=== PATIENT | male | born 1980 | race Two or more races ===

== ENCOUNTER 2023-12-02 11:33 | Outpatient (AMB) | payer OTHER, SELFPAY ==
--- NOTE | 2023-12-02 11:38 | A.OFFPC_ITS ---
Vital Signs 12/02/23 11:41 Height 5 ft 10 in Weight 238 lb BMI 34.1 BP 122/80 Blood Pressure Location Lt brachial Position Sitting Pulse 91 Pulse Source Pulse Oximeter Pulse Oximetry (%) 98 Oxygen Delivery Method Room Air Intake Visit Reasons: Lower Back pain/numbness in legs Intake Note: pt is here for new patient, [facility] care. 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 Patient states he has not seen a primary care physician and a decade. Will draw labs today including PSA. Patient has chief complaint of lower back pain radiates down his left leg. 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 Uses ibuprofen and Tylenol with minimal relief. Patient straight leg test positive in office. Has point tenderness to bilateral SI joints. Patient denies saddle numbness or difficulty going the bathroom. Will order lumbar x-ray, give prednisone, meloxicam, and refer to PT. Patient does not know immunization status. Patient has been instructed to get TD booster when he picks up medications local pharmacy. [facility] Surgical History No pertinent past surgical history Family History Father No problems noted. Mother Asthma Social History Housing: House Alcohol intake: current Alcohol intake frequency: a few times a week Alcohol type: beer Patient Tobacco Use Status: Never used Tobacco e-Cigarette/Vaping Use: Never Used Substance Use Type: Crack/Cocaine and Marijuana service: No Current occupational status: unemployed Cognitive needs: No Hearing needs: No Vision needs: No Questionnaire PHQ-9 Over the last 2 weeks, how often have you been bothered by any of the following problems? 1. Little interest or pleasure in doing things: nearly every day 2. Feeling down, depressed, or hopeless: more than half the days 3. Trouble falling or staying asleep, or sleeping too much: nearly every day 4. Feeling tired or having little energy: more than half the days 5. Poor appetite or overeating: nearly every day 6. Feeling bad about yourself - or that you are a failure or have let yourself or your family down: more than half the days 7. Trouble concentrating on things, such as reading the newspaper or watching television: more than half the days 8. Moving or speaking so slowly that other people could have noticed. Or the opposite - being so fidgety or restless that you have been moving around a lot more than usual: not at all 9. Thoughts that you would be better off or of hurting yourself in some way: not at all Total score: 17 Depression Screening Interpretation: Positive Depression Screening Done: Yes 74213 - PHQ-9 Billing: Yes Source: Developed by Drs. Sergio Altamirano, Rosalia Lema, Frank Rodriguez and colleagues, with an educational vishnu from [employer]. Thrive Questionnaire Date Thrive assessed: 12/02/23 I am a: Patient What is your living situation today?: I have a steady place to live Within the past 12 months, did the food you bought not last and you didn't have the money to get more?: Never true Within the past 12 months, did you worry whether your food would run out before you got money to buy more?: Never true Do you have trouble paying for medicines?: No Do you have trouble getting transportation to medical appointments?: No Do you have trouble paying your heating and electricity bill?: No Do you have trouble taking care of your child, family member or friend?: No Do you have trouble with day-to-day activities such as bathing, preparing meals, shopping, managing finances, etc.?: No Are you currently unemployed and looking for a job?: No Are you interested in more education?: No Please select the resources that you would like help with: None Currently or been in a relationship where the following occur: no concerns reported THRIVE Score: 0 AUDIT C Alcohol Use Questionnaire (AUDIT-C) 1. How often do you have a drink containing alcohol?: 2-3 times a week 2. How many drinks containing alcohol do you have on a typical day when you are drinking?: 5 or 6 3. How often do you have six or more drinks on one occasion?: Weekly Total Score: 8 Score Reviewed/Action Taken: Yes HALEIGH-7 AMB Questionnaire HALEIGH-7 Date HALEIGH - 7 assessed: 12/02/23 Feeling nervous, anxious, or on edge: 1 = Several days Not being able to stop or control worryin = More than half the days Worrying too much about different things: 2 = More than half the days Trouble relaxin = More than half the days Being so restless that it is hard to sit still: 0 = Not at all Becoming easily annoyed or irritable: 2 = More than half the days Feeling afraid as if something awful might happen: 2 = More than half the days Total HALEIGH-7 score (0-4 normal; 5-9 mild; 10-14 moderate; 15-21 severe): 11 Source: Developed by Drs. Sergio Altamirano, Rosalia Lema, Frank Rodriguez and colleagues, with an educational vishnu from [employer]. HALEIGH-7 Assessment Billing HALEIGH-7 Assessment Tool: HALEIGH-7 Assessment 44673 Review of Systems Const Details: Constitutional : No Weight loss, No Fever, No Chills, No Fatigue, No Malaise ENT/Mouth : No sore throat, No Rhinorrhea Eyes: No Eye Pain, No Swelling, No Redness Cardiovascular : No Chest Pain, No SOB, No Dyspnea on Exertion, No Orthopnea, No Edema, Admits Palpitations Respiratory : No Cough, No Sputum, No Wheezing Gastrointestinal : No Nausea, No Vomiting, No Diarrhea, No Constipation, No abdominal Pain, No Hematochezia, No Melena Genitourinary : No Dysuria, No Urinary Frequency, No Hematuria, Musculoskeletal : Admits lower back pain. Skin : No Skin Lesions, No rash. Admits bump on back of neck. Admits itchy scaling feet. Neuro : No Weakness, No Numbness, No Dizziness, No Headache Psych : Admits some Anxiety/Panic, No Depression. Denies SI/HI. Heme/Lymph: No Bruising, No Bleeding,No Lymphadenopathy Endocrine : No Polyuria, No Polydipsia All other systems reviewed and are negative Physical exam (Primary Care) Vital Signs: Last Vital Signs Pulse 91 12/02/23 11:41 BP 122/80 12/02/23 11:41 Pulse Ox 98 12/02/23 11:41 Oxygen Delivery Method Room Air 12/02/23 11:41 Care Plan Goal for BP management: Vital signs reviewed stable. BMI result Body Mass Index 34.1 Tobacco/Smoking Status: Tobacco use Status Tobacco use date assessed 12/02/23 12/02/23 11:49 Patient Tobacco Use Status Never used Tobacco 12/02/23 11:49 e-Cigarette/Vaping Use Never Used 12/02/23 11:49 Depression Screening Interpretation: Positive Thrive Assessment: Date of Thrive Assessment Date Thrive assessed 12/02/23 12/02/23 11:49 Currently or been in a relationship where the following occur: no concerns reported Const Other: Appearance: Alert.? Oriented X3.? No acute distress.? Head: Normocephalic, atraumatic, no step-offs or deformities Eyes: Pupils equal, round and reactive to light.? ENT: Pharynx normal.? Neck: Normal inspection.? Neck supple.? CVS: Normal heart rate and rhythm.? Pulses normal.? Respiratory: No respiratory distress.? Breath sounds normal.? Skin: Dryness and scaling on bilateral feet. Small movable, nontender bump on back of neck, left side. Extremities: No lower extremity edema.? No calf ttp. 5/5 strength to bilateral upper and lower extremities Back: No midline tenderness, no C-spine tenderness, full range of motion, no CVA tenderness bilaterally. + SI joint tenderness bilaterally. +straight leg test left leg. Neuro: Oriented X 3.? No motor deficit.? No sensory deficit. CN 2-12 intact Office Procedures EKG 22137-[id number], Complete Assessment and Plan Assessment & Plan (1) Lower back pain: Comment: Will obtain x-ray, will give meloxicam, cyclobenzaprine, prednisone. Will give referral to PT. Code(s): M54.50 - Low back pain, unspecified Qualifiers: Back pain laterality: bilateral Chronicity: unspecified Sciatica laterality: sciatica of left side Sciatica presence: with sciatica Qualified Code(s): M54.42 - Lumbago with sciatica, left side (2) Lump on neck: Comment: Will order ultrasound Code(s): R22.1 - Localized swelling, mass and lump, neck (3) Screening for diabetes mellitus: Comment: Will draw A1c Code(s): Z13.1 - Encounter for screening for diabetes mellitus (4) Palpitations: Comment: In office EKG obtained. Normal sinus rhythm. Code(s): R00.2 - Palpitations Plan: Take your medications as prescribed. If you were prescribed antibiotics today, it is important that you take your medication to their entirety, do not skip any doses, do not finish them early. Follow-up with your primary care provider this week. Return to the emergency department with new or worsening symptoms. Such as fevers, chills, chest pain, shortness of breath, nausea, vomiting, dizziness, headache, vision changes, lethargy In case of emergency call 911 Plan Follow-up in 1 month physical exam Orders: Orders XR lumbar spine 2-3V Today M54.50 - Low back pain, unspecified AMB EKG-In Office Today Z13.6 - Encounter for screening for cardiovascular disorders Complete Blood Count Auto Diff Today Z13.0 - Encounter for screening for diseases of the blood and blood-forming organs and certain disorders involving the immune mechanism Lipid Panel Today Z13.220 - Encounter for screening for lipoid disorders Vitamin B6 Today Z13.21 - Encounter for screening for nutritional disorder Vitamin B12 Today Z13.21 - Encounter for screening for nutritional disorder UA CC w/rflx Micro + Cult Today Z13.89 - Encounter for screening for other disorder TSH reflex Free T4 Today Z13.29 - Encounter for screening for other suspected endocrine disorder Comprehensive Met. Panel Today Z91.89 - Other specified personal risk factors, not elsewhere classified Vitamin D 25-OH (D2 and D3) Today Z13.21 - Encounter for screening for nutritio nal disorder PSA,Total (Free>4and<10) Today Z12.5 - Encounter for screening for malignant neoplasm of prostate US soft tiss head and/or neck Today R22.1 - Localized swelling, mass and lump, neck Hemoglobin A1c Today Z13.1 - Encounter for screening for diabetes mellitus Medications: New ketoconazole 2% 1 appl topical DAILY 15 grams 0RF meloxicam Do not combine with other NSAIDS 15 mg PO DAILY PRN 30 tabs 0RF pain prednisone 40 mg (2 x 20 mg) PO DAILY 10 tabs 0RF cyclobenzaprine 5 mg PO BEDTIME PRN 14 tabs 0RF muscle spasm Coding Level of Care Code New Pt Level 4 (81190) Diagnoses Bilateral low back pain with left-sided sciatica, unspecified chronicity M54.42 Back pain laterality: bilateral Chronicity: unspecified Sciatica laterality: sciatica of left side Sciatica presence: with sciatica Lump on neck R22.1 Screening for diabetes mellitus Z13.1 Palpitations R00.2 CPT Codes EKG - CPT: 58169-[id number], Complete ([id number]) Additional Codes HALEIGH-7 Assessment Billing - HALEIGH-7 Assessment Tool: HALEIGH-7 Assessment 53282 ([id number]) Time Spent (min) 35
[2023-12-02 11:41] VITALS: BP 122/80; PULSE 91; O2SAT 98; BMI 34.1
== END 2023-12-02 13:04 | disposition home or self-care (01) ==
PROVIDERS: Visit Provider Nurse Practitioner Primary Care
DX: M54.42 Lumbago with sciatica, left side (principal); R22.1 Localized swelling, mass and lump, neck; Z13.1 Encounter for screening for diabetes mellitus; R00.2 Palpitations
CPT/HCPCS: 93000; 99204

== ENCOUNTER 2023-12-02 12:29 | Outpatient (REF) | payer OTHER, SELFPAY ==
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
[2023-12-02 16:06] LABS: Appearance Urine Turbid; Color Urine Dark Yellow; Glucose Urine UA Negative (Negative); Leukocyte Esterase Urine Trace (Negative); Nitrite Urine Negative (Negative); PH 5.5 (5.0-9.0); Specific Gravity - Urine >= 1.030 (1.005-1.025); UMIC TRIGGER UACC YES; Urine Blood Negative (Negative); Urine Ketones Trace mg/dL (Negative); Urine Protein 30 (1+) mg/dL (Neg-Trace)
[2023-12-02 16:21] LABS: Bacteria Urine None Seen (None Seen); RBC Urine 0-2 /HPF (0-2); WBC Urine 0-5 /HPF (0-5)
[2023-12-02 16:45] LABS: MANUAL DIFF FLAG NO
[2023-12-02 17:09] LABS: Estimated Average Glucose 97 mg/dL
[2023-12-02 17:13] LABS: Alanine Aminotransferase 30 U/L (0-40); Albumin Level 4.5 g/dL (3.5-5.0); Alkaline Phosphatase 71 U/L (39-117); Anion Gap 13 (12-20); Aspartate Amino Transferase 24 U/L (5-37); Bilirubin Total 0.6 mg/dL (0.0-1.0); Blood Urea Nitrogen 10 mg/dL (9-16); Calcium 9.9 mg/dL (8.4-10.2); Carbon Dioxide 28 mmol/L (22-29); Chloride 102 mmol/L (96-108); Cholesterol 206 mg/dL (<200); Estimated Glomerular Filt Rate > 60; Glucose Random 85 mg/dL (60-115); HDL Cholesterol 52 mg/dL (>40); LDL Cholesterol Calculated 115 mg/dL (<100); Potassium 3.9 mmol/L (3.3-5.1); Sodium 139 mmol/L (135-145); Total Protein 8.2 g/dL (6.5-8.0); Triglycerides 196 mg/dL (<150)
[2023-12-02 17:24] LABS: Basophils Absolute Auto 0.1 X10*3/uL (0.0-0.2); Basophils Percent Auto 0.6 % (0-2); Eosinophils Absolute Auto 0.1 X10*3/uL (0.0-0.4); Eosinophils Percent Auto 0.8 % (0-4); Hematocrit 47.5 % (42.0-52.0); Hemoglobin 15.6 g/dl (14.0-18.0); Imm Gran Abs Auto 0.07 X10*3/uL (0.00-0.03); Imm Gran Pct Auto 0.5 % (0.0-0.4); Lymphocytes Absolute Auto 3.1 X10*3/uL (1.2-4.9); Lymphocytes Percent Auto 23.5 % (20-40); Mean Corpuscular HGB Conc 32.8 g/dl (31.0-36.0); Mean Corpuscular Hemoglobin 33.3 pg (27.0-33.0); Mean Corpuscular Volume 101.5 fL (80.0-98.0); Mean Platelet Volume 10.7 fL (9.4-12.4); Monocytes Absolute Auto 0.9 X10*3/uL (0.1-1.2); Neutrophils Absolute Auto 8.8 x10*3/uL (2.0-8.3); Neutrophils Percent Auto 67.6 % (45-73); Platelet Count 335 X10*3/uL (160-400); Red Blood Count 4.68 X10*6/uL (4.60-5.80); Red Cell Distribution Width 11.8 % (11.0-16.0)
[2023-12-02 17:29] LABS: TSH reflex Free T4 1.53 uIU/mL (0.32-4.0)
[2023-12-02 17:33] LABS: Vitamin B12 630 pg/mL (200-900)
[2023-12-06 13:34] LABS: Vitamin D 25-OH, D2 <4 ng/mL; Vitamin D 25-OH, D3 16 ng/mL; Vitamin D 25-OH, Total 16 ng/mL (30-100)
[2023-12-07 11:43] LABS: Vitamin B6 7.8 ng/mL (2.1-21.7)
== END 2023-12-02 12:30 | disposition home or self-care (01) ==
LOC: HO.HMGCX 12:29
PROVIDERS: PCP Nurse Practitioner Primary Care; Visit Provider Nurse Practitioner Primary Care
DX: Z13.220 Encounter for screening for lipoid disorders (principal); Z13.21 Encounter for screening for nutritional disorder; Z13.29 Encounter for screening for other suspected endocrine disorder; Z13.0 Encounter for screening for diseases of the blood and blood-forming organs and certain disorders involving the immune mechanism; Z12.5 Encounter for screening for malignant neoplasm of prostate; M54.50 Low back pain, unspecified; Z91.89 Other specified personal risk factors, not elsewhere classified
CPT/HCPCS: 36415; 72100; 80053; 80061; 81001; 82306; 82607; 83036; 84153; 84207; 84443; 85025

== ENCOUNTER → 2023-12-05 10:34 | Outpatient (BNVA) | payer SELFPAY | PROVIDERS: PCP Nurse Practitioner Primary Care; Visit Provider Physician Assistant Medical | DX: Z02.79 Encounter for issue of other medical certificate (principal) ==

== ENCOUNTER 2023-12-07 10:26 | Outpatient (REF) | payer OTHER, SELFPAY ==
--- NOTE | ~2023-12-07 | US_ITS ---
EXAMINATION: US SOFT TISSUE HEAD/NECK CLINICAL INFORMATION: Localized swelling, mass and lump, left neck. COMPARISON: None available. TECHNIQUE: Linear transducer goode-scale and color Doppler examination with attention to the region of concern in the left neck as indicated by the patient. FINDINGS: Corresponding with the palpable finding in the lateral left neck, a 1.3 x 1.5 x 0.5 cm hypoechoic, circumscribed subdermal collection is seen. There is no associated color Doppler flow. There is no definite sinus tract noted. There is increased through sound transmission. US/US soft tiss head and/or neck IMPRESSION: Corresponding with the palpable finding in the lateral, lower left cervical region, a 1.5 cm subdermal low echotexture collection is noted. The ultrasound appearance favors an epidermal inclusion cyst. A lipoma would be a further, less likely differential possibility. Recommend management on a clinical basis.
== END 2023-12-07 10:27 | disposition home or self-care (01) ==
LOC: HO.HMGCX 10:26
PROVIDERS: PCP Nurse Practitioner Primary Care; Visit Provider Nurse Practitioner Primary Care
DX: R22.1 Localized swelling, mass and lump, neck (principal)
CPT/HCPCS: 76536

== ENCOUNTER 2024-01-02 08:46 | Outpatient (AMB) | payer OTHER, SELFPAY ==
[2024-01-02 08:48] VITALS: BP 122/78; PULSE 74; O2SAT 98; BMI 34.9
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
== END 2024-01-02 10:43 | disposition home or self-care (01) ==
PROVIDERS: Visit Provider Nurse Practitioner Primary Care
DX: R29.898 Other symptoms and signs involving the musculoskeletal system (principal); L72.0 Epidermal cyst; M54.42 Lumbago with sciatica, left side; F41.9 Anxiety disorder, unspecified; F32.A Depression, unspecified; M53.3 Sacrococcygeal disorders, not elsewhere classified
CPT/HCPCS: 99214

== ENCOUNTER 2024-01-12 09:33 | Outpatient (REF) | payer OTHER, SELFPAY ==
--- NOTE | ~2024-01-12 | XR_ITS ---
EXAMINATION: XR SACROILIAC JOINTS CLINICAL INFORMATION: Sacral coccygeal disorder not otherwise specified. COMPARISON: Lumbar spine 12/02/2023. TECHNIQUE: 3 views of the sacroiliac joints FINDINGS: Mild degenerative changes with sclerosis in the bilateral sacroiliac joints. Imaged portions of bilateral hip joints appear symmetric with mild acetabular hypertrophic change/sclerosis, left greater than right. 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 Imaged portions of bilateral hip joints appear symmetric with mild acetabular hypertrophic change/sclerosis, left greater than right.
--- NOTE | ~2024-01-12 | US_ITS ---
EXAMINATION: US DIANE complete CLINICAL INFORMATION: Other symptoms and signs involving the musculoskeletal system COMPARISON: None available. TECHNIQUE: The ankle/brachial indices of the distal posterior tibial and the dorsalis pedis arteries were obtained of the lower extremity arterial system bilaterally; along with pressures and pulse volume recordings at the ankle level. The study was performed at rest. FINDINGS: 1. ANKLE-BRACHIAL INDICES: RIGHT: 1.06 LEFT: 1.08 2. ANKLE PVR WAVEFORMS: RIGHT: Normal LEFT: Normal US/US DIANE complete IMPRESSION: Normal resting peripheral arterial testing without evidence of hemodynamically significant stenosis.
--- NOTE | ~2024-01-12 | US_ITS ---
EXAMINATION: US RETROPERITONEAL LIMITED (RENAL ONLY) CLINICAL INFORMATION: Calculus of kidney. COMPARISON: X-ray lumbar spine 12/02/2023. TECHNIQUE: Real-time imaging of the kidneys. FINDINGS: RIGHT KIDNEY: 11.5 x 6.0 x 6.8 cm (SAG x AP x TRV). The kidney is normal in size, contour, and echogenicity. Renal cortical thickness is normal. No calculi or focal parenchymal lesions. No hydronephrosis. LEFT KIDNEY: 11.5 x 5.6 x 5.5 cm (SAG x AP x TRV). The kidney is normal in size, contour, and echogenicity. Renal cortical thickness is normal. No focal parenchymal lesions or hydronephrosis. 0.4 x 0.3 x 0.4 cm nonobstructing calculus is seen in the mid kidney. US/US renal BI IMPRESSION: 1. Normal appearance of the right kidney. 2. 0.4 cm nonobstructing calculus in the mid left kidney.
== END 2024-01-12 09:34 | disposition home or self-care (01) ==
LOC: HO.US 09:33
PROVIDERS: PCP Nurse Practitioner Primary Care; Visit Provider Nurse Practitioner Primary Care
DX: N20.0 Calculus of kidney (principal); R29.898 Other symptoms and signs involving the musculoskeletal system; M53.3 Sacrococcygeal disorders, not elsewhere classified
CPT/HCPCS: 72200; 76775; 93923

== ENCOUNTER 2024-05-14 16:37 | Emergency (ER) | payer OTHER, SELFPAY ==
--- NOTE | ~2024-05-14 | XR_ITS ---
EXAMINATION: XR FOOT, LEFT CLINICAL INFORMATION: Pain and swelling COMPARISON: None available. TECHNIQUE: AP, lateral, and oblique views of the left foot. FINDINGS: No evidence of acute fracture or dislocation. Alignment is anatomic. Joint spaces are maintained. No bony erosive changes are seen. Dorsal and plantar soft tissue swelling and subcutaneous edema. No air is seen in the soft tissues. No unexpected radiopaque foreign bodies. XR/XR foot LT min 3V IMPRESSION: No radiographic evidence of acute osseous abnormality. Soft tissue swelling. Electronically signed by: Berhane Lozano MD 05/14/2024 07:47 PM EDT
[2024-05-14 17:20] VITALS: BP 144/101; PULSE 85; RESP 16; TEMP 37.3; O2SAT 96; BMI 36.9
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
[2024-05-14 18:00] LABS: MANUAL DIFF FLAG NO
[2024-05-14 18:15] LABS: Basophils Percent Auto 0.3 % (0-2); Eosinophils Absolute Auto 0.1 X10*3/uL (0.0-0.4); Eosinophils Percent Auto 0.4 % (0-4); Hematocrit 41.5 % (42.0-52.0); Imm Gran Abs Auto 0.07 X10*3/uL (0.00-0.03); Imm Gran Pct Auto 0.5 % (0.0-0.4); Lymphocytes Absolute Auto 2.7 X10*3/uL (1.2-4.9); Lymphocytes Percent Auto 19.8 % (20-40); Mean Corpuscular HGB Conc 33.7 g/dl (31.0-36.0); Mean Corpuscular Hemoglobin 32.9 pg (27.0-33.0); Mean Corpuscular Volume 97.6 fL (80.0-98.0); Monocytes Absolute Auto 0.9 X10*3/uL (0.1-1.2); Monocytes Percent Auto 6.3 % (2-11); Neutrophils Percent Auto 72.7 % (45-73); Platelet Count 338 X10*3/uL (160-400); Red Blood Count 4.25 X10*6/uL (4.60-5.80); Red Cell Distribution Width 11.8 % (11.0-16.0); White Blood Count 13.8 X10*3/uL (4.8-10.8)
[2024-05-14 18:16] LABS: Alanine Aminotransferase 28 U/L (0-40); Albumin Level 4.2 g/dL (3.5-5.0); Alkaline Phosphatase 76 U/L (39-117); Anion Gap 14 (12-20); Aspartate Amino Transferase 16 U/L (5-37); Bilirubin Total 0.4 mg/dL (0.0-1.0); Blood Urea Nitrogen 6 mg/dL (9-16); C Reactive Protein 1.18 mg/dL (< or = 0.50); Calcium 9.1 mg/dL (8.4-10.2); Carbon Dioxide 22 mmol/L (22-29); Chloride 107 mmol/L (96-108); Estimated Glomerular Filt Rate > 60; Glucose Random 109 mg/dL (60-115); Potassium 3.7 mmol/L (3.3-5.1); Sodium 139 mmol/L (135-145); Total Protein 7.6 g/dL (6.5-8.0)
[2024-05-14 18:22] LABS: B Type Natriuretic Peptide < 10 pg/mL (<100)
[2024-05-14 18:58] LABS: Erythrocyte Sedimentation Rate 13 MM/HR (0-15)
[2024-05-14 22:12] VITALS: BP 136/94; PULSE 92; RESP 20; TEMP 36.9; O2SAT 98
[2024-05-14 22:56] VITALS: BP 136/94; PULSE 92; RESP 20; TEMP 36.9; O2SAT 98
--- NOTE | 2024-05-14 23:01 | PC.NURSE ---
left food noteably red with blisters present. Cold compresses given per patient request as this help with the pain.
[2024-05-15 00:13] VITALS: PULSE 98; RESP 16; TEMP 36.8; O2SAT 97
--- NOTE | 2024-05-15 00:14 | MHC.EDTECH ---
at this time this tech took vital signs, BP was unable to properly be read related to the pt being worked up and moving arm too much, all other vitals signs documented
[2024-05-15] MEDS: cephALEXin 500 MG CAPSULE PO (00:33)
[2024-05-15] MEDS: Doxycycline Monohydrate 100 MG CAPSULE PO (00:33)
[2024-05-15 00:37] VITALS: BP 136/94; PULSE 98; RESP 16; TEMP 36.8; O2SAT 97
--- NOTE | 2024-05-15 00:59 | PC.NURSE ---
patient foot wrapped with non adhering telfa,gauze and kurtis wrap. Patient also given cruthes. Crutch training complete
== END 2024-05-15 01:03 | disposition home or self-care (01) ==
PROVIDERS: Physician Assistant Medical; Emergency Provider Internal Medicine; PCP Nurse Practitioner Primary Care
DX: L03.116 Cellulitis of left lower limb (principal); L53.8 Other specified erythematous conditions; M79.672 Pain in left foot; R26.2 Difficulty in walking, not elsewhere classified; Z79.899 Other long term (current) drug therapy
CPT/HCPCS: 36415; 73630; 80053; 83880; 85025; 85652; 86140; 99283; 99284